=== PATIENT | male | born 1970 | race Caucasian/White ===

== ENCOUNTER 2016-10-24 12:56 | Emergency (ER) | payer MEDICAID ==
[~2016-10-24] VITALS: Ht 172.7 cm; Wt 113.4 kg
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
--- NOTE | 2016-10-24 13:14 | NUR ---
[employer] SENIOR MANAGER AT BEDSIDE FOR EVAL.
[2016-10-24] MEDS ORDERED: LIDOCAINE 1%-EPI 1:100,000 20 ML VIAL ONE (13:19)
[2016-10-24] MEDS ORDERED: TDAP [DIPH/PERTUSSIS/TET] 0.5 ML VIAL IM ONE (13:31)
[2016-10-24] MEDS: TDAP [DIPH/PERTUSSIS/TET] 0.5 ML VIAL IM ONE ×2 (13:36→13:37)
--- NOTE | 2016-10-24 13:44 | NUR ---
LAC REPAIR DONE. 9 SUTURES NOTED. TECH AT BEDSIDE FOR WOUND CARE.
[2016-10-24 13:57] VITALS: BP 132/77
--- NOTE | 2016-10-24 13:57 | NUR ---
Patient discharged to home in stable condition. Written and verbal after care instructions given. Patient verbalizes understanding of instruction.
== END 2016-10-24 13:58 | disposition home or self-care (01) ==
LOC: ER 12:58
DX: S61.411A Laceration without foreign body of right hand, initial encounter (principal); Z23 Encounter for immunization; W25.XXXA Contact with sharp glass, initial encounter; Y93.89 Activity, other specified; Y92.89 Other specified places as the place of occurrence of the external cause; Y99.8 Other external cause status
CPT/HCPCS: 12002; 90471; 90715; 99283; A4606; A6402; J3490; Z7610